=== PATIENT | female | born 1985 | race Caucasian/White ===

== ENCOUNTER 2018-11-22 18:04 | Emergency (ER) | payer SELFPAY ==
[2018-11-22] MEDS: HYDROCODONE/APAP (5/325) TAB PO (19:26)
[2018-11-22] MEDS: ONDANSETRON (ODT) 4 MG TAB ODT (19:26)
[2018-11-22] MEDS: LIDOCAINE 1% (MDV) 20 ML INJ SC (19:28)
[2018-11-22] MEDS: CEFTRIAXONE 1 GM INJ IM (19:28)
[2018-11-22] MEDS: KETOROLAC 30 MG INJ IM (20:11)
== END 2018-11-22 20:10 | disposition left against medical advice (07) ==
LOC: FTE 18:04
DX: K08.89 Other specified disorders of teeth and supporting structures (principal); F17.210 Nicotine dependence, cigarettes, uncomplicated
CPT/HCPCS: 81025; 96372; 99284-25